=== PATIENT | male | born 1980 | race African-American/Black ===

== ENCOUNTER 2020-07-17 14:19 | Emergency (ER) | payer OTHER ==
[2020-07-17 14:28] VITALS: BP 130/75; PULSE 74; TEMP 97.8; BMI 26.6
--- NOTE | 2020-07-17 15:01 | PDOC ---
History of Present Illness - General Chief Complaint: Pain, Acute Stated Complaint: NECK PAIN Time Seen by Provider: 07/17/20 14:32 History Source: Patient Exam Limitations: Clinical Condition - History of Present Illness Initial Comments: 07/17/20 15:07 Patient with no significant past medical history present with complaint of left- sided neck pain and stiffness upon wake this morning. Patient reported taking ibuprofen this morning and diclofenac topical for pain with minimal improvement. Denies any trauma or injury to the neck. Denies radiculopathy, blurry vision, change in vision, headache, nausea or vomiting. Denies any other symptoms Is this a multiple visit Asthma Patient?: No Timing/Duration: 4-6 hours Past History - Medical History Home Medications: Ambulatory Orders Methocarbamol [Robaxin -] 500 mg PO BID PRN #14 tablet 07/17/20 - Psycho-Social/Smoking History Smoking History: Never smoked Information on smoking cessation initiated: No - Substance Abuse Hx (Audit-C & DAST Scrn) How often the patient has a drink containing alcohol: Never Score: In Men: 4 or > Positive; In Women: 3 or > Positive: 0 Screen Result (Pos requires Nsg. Audit-10AR): Negative In the last yr the pt used illegal drug/Rx for NonMed reason: No Score: Yes response is considered Positive: 0 Screen Result (Positive result requires Nsg. DAST-10): Negative Review of Systems - Review of Systems Able to Perform ROS?: Yes Is the patient limited [place]ish proficient: No Constitutional: No: Chills, Fever, Malaise HEENTM: No: Symptoms Reported, See HPI, Eye Pain, Blurred Vision, Tearing, Recent change in vision, Double Vision, Cataracts, Ear Pain, Ocular Prothesis, Ear Discharge, Nose Pain, Nose Congestion, Tinnitus, Nose Bleeding, Hearing Loss, Throat Pain, Throat Swelling, Mouth Pain, Dental Problems, Difficulty Swallowing, Mouth Swelling, Other Respiratory: No: Symptoms reported, See HPI, Cough, Orthopnea, Shortness of Breath, SOB with Exertion, SOB at Rest, Stridor, Wheezing, Productive cough, Hemoptysis, Other Cardiac (ROS): No: Symptoms Reported, See HPI, Chest Pain, Edema, Irregular Heart Rate, Lightheadedness, Palpitations, Syncope, Chest Tightness, Other ABD/GI: No: Symptoms Reported, Nausea, Vomiting Musculoskeletal: Yes: Symptoms Reported, See HPI, Neck Pain (left side neck pain) Integumentary: No: Symptoms Reported Neurological: No: Symptoms reported, Headache, Dizziness All Other Systems: Reviewed and Negative *Physical Exam - Vital Signs Last Vital Signs Temp Pulse Resp BP Pulse Ox 97.8 F 74 16 130/75 100 07/17/20 14:24 07/17/20 14:24 07/17/20 14:24 07/17/20 14:24 07/17/20 14:24 - Physical Exam 07/17/20 15:09 GENERAL: Well developed, well nourished. Awake and alert. No acute distress. PULMONARY: No evidence of respiratory distress. MUSCULOSKELETAL : point tenderness over SCM of left paracervical muscle of C2 to to C6. No tenderness to right side and no midline tenderness. Full range of motion of cervical. SKIN: Warm and dry. Normal capillary refill. No rashes. No jaundice. NEUROLOGICAL: Alert, awake, appropriate. No motor deficits in the lower extremities. Gait is normal without ataxia. PSYCHIATRIC: Cooperative. Good eye contact. Appropriate mood and affect. General Appearance: Yes: Nourished, Appropriately Dressed. No: Apparent Distress Medical Decision Making - Medical Decision Making 07/17/20 15:08 Patient with no significant past medical history present with complaint of left- sided neck pain and stiffness upon wake this morning. Patient reported taking ibuprofen this morning and diclofenac topical for pain with minimal improvement. Denies any trauma or injury to the neck. Denies radiculopathy, blurry vision, change in vision, headache, nausea or vomiting. Denies any other symptoms Exam significant for point tenderness over SCM of left paracervical muscle of C2 to to C6. No tenderness to right side and no midline tenderness. Full range of motion of cervical. Pupil equal reflective to light bilateral. Normal neuro exam. Patient symptoms likely neck muscle spasm. Patient stable for discharge to continue home Motrin and will add Robaxin muscle relaxer with advised to do hot compresses with PCP follow-up. Patient left department with ambulating with normal gait without distress Discharge - Discharge Information Problems reviewed: Yes Clinical Impression/Diagnosis: Neck muscle spasm Condition: Stable Disposition: HOME - Admission No - Additional Discharge Information Prescriptions: Methocarbamol [Robaxin -] 500 mg PO BID PRN #14 tablet PRN Reason: neck spasm - Follow up/Referral Referrals: Juaquin Ball I [Primary Care Provider] - - Patient Discharge Instructions Patient Printed Discharge Instructions: DI for Muscle Spasm Additional Instructions: Your neck stiffness likely caused by muscle spasm. Continue home ibuprofen as needed for pain and take prescribed muscle relaxer. Apply heat to neck area 2-3 times a day as needed for pain. Rest and no strenuous activity for the next 48 hours. Follow-up with your primary care - Post Discharge Activity Work/Back to School Note: Back to Work
== END 2020-07-17 15:00 | disposition home or self-care (01) ==
LOC: JERFT 14:19
DX: M62.838 Other muscle spasm (principal)
CPT/HCPCS: 99283-25